=== PATIENT | female | born 1995 | race Caucasian/White ===

== ENCOUNTER → 2019-08-14 12:55 | Outpatient (CLI) | payer OTHER, SELFPAY | PROVIDERS: PCP Internal Medicine; Referring Provider Internal Medicine; Visit Provider Internal Medicine | DX: M79.641 Pain in right hand (principal) | CPT/HCPCS: 95886; 95910 ==

== ENCOUNTER → 2019-08-30 09:41 | Outpatient (CLI) | payer OTHER, SELFPAY ==
--- NOTE | 2019-08-30 | DI.MRI.S_ITS ---
PROCEDURE: MR HAND RT WO CON INDICATIONS: Pain in right finger(s) TECHNIQUE: Noncontrast coronal T1 spin echo and T2 fast spin echo with fat saturation, axial proton density fast spin echo and T2 fast spin echo with fat saturation, sagittal T1 spin echo and STIR through the hand and fingers. COMPARISON: [facility], RG, BILATERAL HANDS, 08/07/2019, 12:35. FINDINGS: Image quality: Diagnostic. Bones: There is no acute fracture, dislocation, or suspicious osseous lesion evident involving the osseous structures of the right hand. The alignment of the osseous structures of the hand are within normal limits. No definite osseous or erosions are appreciated. However, there are mild degenerative changes involving the joints of the thumb. Minimal degenerative cystic changes noted involving the head of the 1st metacarpal. No significant joint effusions are identified. Soft tissues: Visualized muscles demonstrate normal bulk and internal signal. No intramuscular masses identified. No ganglion cysts. They flexor and extensor tendons of the hand are within normal limits. No fluid is contained within the flexor or extensor tendon sheaths. The median nerve through the carpal tunnel is within normal limits. The ulnar nerve through T1 Canal appears to be within normal limits. Please note that the ligaments of the wrist are not adequately characterized on this examination related to the larger [id number]. No obvious large abnormalities are appreciated. The tracheal fibrocartilage complex appears to grossly be within normal limits, but also is not well characterized. IMPRESSION: 1. Mild degenerative changes of the thumb. 2. No acute fractures. No suspicious osseous lesions. 3. No significant soft tissue abnormalities are appreciated. The flexor and extensor tendons are within normal limits. Dictated by: Mateo Brooks M.D. on 09/01/2019 at 10:29 Approved by: Mateo Brooks M.D. on 09/01/2019 at 10:34
== END ==
PROVIDERS: PCP Internal Medicine; Referring Provider Orthopaedic Surgery; Visit Provider Orthopaedic Surgery
DX: M79.644 Pain in right finger(s) (principal)
CPT/HCPCS: 73218

== ENCOUNTER → 2020-01-23 12:44 | Outpatient (CLI) | payer OTHER, SELFPAY ==
--- NOTE | 2020-01-23 | DI.ECHO.S_ITS ---
[facility] +---------+ : : [address] : [place] : : : : [id number] : : : : Phone: [phone]+ Echocardiogram Report + + :Name: JALIL ZAFAR Study Date: 01/23/2020 Height: 73 in : :[facility] Weight: 155 lb : : Gender: Female BSA: 1.9 m2 : :: 1995 Age: 24 yrs BP: 126/80 mmHg: :Reason For Study: Serenity danlos syndrome : : Performed By: Cathleen Laura : :Referring: CHANDA SAUCEDO : + + Interpretation Summary Sinus bradycardia. Heart rate is 54-58 bpm. Normal LV size, wall thickness, wall motion and LV systolic function. EF is 60-65%. Normal chamber sizes. No significant valvular abnormalities. Normal aorta dimension. No cardiovascular manifestations of Serenity-Danlos syndrome identified. No prior study available for comparison. Procedure: A two-dimensional transthoracic echocardiogram with color flow and Doppler was performed. The study quality was technically adequate. There is no prior echocardiogram noted for this patient. The patient was in normal sinus rhythm during the exam. Left Ventricle: The left ventricle is normal in size and wall thickness. The ejection fraction is estimated to be 60-65%. Right Ventricle: The right ventricle is normal in size and function. Atria: The left atrial size is normal. Right atrial size is normal. There is no Doppler evidence for an interatrial shunt. Mitral Valve: The mitral valve is normal in structure and function. There is mild mitral regurgitation. Aortic Valve: The aortic valve is trileaflet. The aortic valve opens well. No aortic regurgitation is present. Tricuspid Valve: The tricuspid valve is normal in structure and function. There is a trace or physiologic amount of tricuspid regurgitation. Pulmonary artery pressures cannot be estimated because of the lack of a measurable TR jet velocity. Pulmonic Valve: The pulmonic valve leaflets are thin and pliable; valve motion is normal. There is a trace or physiologic amount of pulmonic regurgitation. Great Vessels: The aortic root is normal size. The ascending aorta is normal in size. The pulmonary artery is normal size. The IVC is of normal diameter and collapses greater than 50% with a sniff. This suggests a low right atrial pressure of 3 mm Hg. Pericardium/ Pleura There is no pericardial effusion. MMode/2D Measurements & Calculations LVIDd: 4.8 cm LVOT diam: 2.2 cm LVIDs: 3.4 cm Ao root diam: 2.9 cm FS: 28.7 % asc Aorta Diam: 2.7 cm IVSd: 0.48 cm Ao Arch Diam (Prox Trans): 2.4 cm LVPWd: 0.71 cm LV pinedo. diameter/BSA (cm/m^2): 2.5 LV sys. diameter/BSA (cm/m^2): 1.8 LA A2 area: 16.9 cm2 RA long axis: 5.0 cm LA A4 area: 16.5 cm2 RA area: 14.5 cm2 LA length (vol): 5.2 cm RA vol: 36.1 ml LA vol: 46.0 ml RA : 18.7 ml/m2 LA vol index: 23.8 ml/m2 IVC diam: 1.3 cm RVD1 (basal): 3.8 cm TAPSE: 2.6 cm Doppler Measurements & Calculations Ao V2 max: 102.4 cm/sec LVOT Max Donny: 79.2 cm/sec Ao V2 mean: 68.9 cm/sec LV V1 max P.5 mmHg Ao max P.2 mmHg LV V1 VTI: 17.0 cm Ao mean P.1 mmHg YESSENIA(I,D): 3.2 cm2 Ao V2 VTI: 20.3 cm YESSENIA(V,D): 2.9 cm2 sev ratio: 0.84 YESSENIA indexed to BSA (cm^2/m^2): 1.7 MV E max donny: 67.2 cm/sec PA V2 max: 78.3 cm/sec MV A max donny: 33.8 cm/sec PA V2 mean: 50.7 cm/sec MV E/A: 2.0 PA mean P.2 mmHg Med Peak E' Donny: 14.5 cm/sec PA Accel Time: 0.11 sec E/E' med: 4.6 Lat Peak E' Donny: 16.7 cm/sec E/E' lat: 4.0 E/e' average: 4.3 MV dec time: 0.14 sec SV(LVOT): 64.7 ml Electronically signed by: Cassandra Nettles M.D. on Reading Physician:01/23/2020 10:27 PM
--- NOTE | 2020-01-23 | DI.MRI.S_ITS ---
PROCEDURE: MR KNEE RT WO CON INDICATIONS: Serenity-Danlos syndrome, unspecified TECHNIQUE: Noncontrast sagittal PD fast spin echo and T2 fast spin echo with fat saturation, sagittal 3-D FLASH with fat saturation; coronal T1 spin echo and PD fast spin echo with fat saturation, and axial PD fast spin echo with fat saturation through the knee. COMPARISON: None. FINDINGS: Image quality: Excellent. Menisci: The medial and lateral menisci demonstrate normal morphology and internal signal. The meniscal root ligaments appear intact. Cruciate ligaments: The anterior and posterior cruciate ligaments appear intact. Medial structures: The medial collateral ligament appears intact. Visualized portions of the pes anserinus tendons appear normal. No abnormal bursal fluid. Lateral structures: The lateral collateral ligament, long and short heads of the biceps femoris tendon appear intact. The popliteus tendon appears normal. Iliotibial band appears normal. Anterior structures: The quadriceps and patellar tendons appear intact. Patellar alignment is normal. No femoral trochlear dysplasia or ventral trochlear prominence. No edema in the infrapatellar fat pad. Bones and cartilage: No bone marrow contusions or fractures. The cartilage of the medial and lateral femorotibial compartments, as well as the patellofemoral compartment, appears normal in thickness. Joint space: There is a small knee joint effusion and a trace Eduardo's cyst. Normal appearing synovial plicae are incidentally noted. IMPRESSION: 1. No evidence of internal derangement. 2. Small knee joint effusion. Trace Eduardo's cyst. Dictated by: Maximus Dunn M.D. on 01/23/2020 at 12:52 Approved by: Maximus Dunn M.D. on 01/23/2020 at 12:54
--- NOTE | 2020-01-23 | DI.MRI.S_ITS ---
PROCEDURE: MR KNEE LT WO CON INDICATIONS: Serenity-Danlos syndrome, unspecified TECHNIQUE: Noncontrast sagittal PD fast spin echo and T2 fast spin echo with fat saturation, sagittal 3-D FLASH with fat saturation; coronal T1 spin echo and PD fast spin echo with fat saturation, and axial PD fast spin echo with fat saturation through the knee. COMPARISON: [facility], MR, MR KNEE RT WO CON, 01/23/2020, 12:54. FINDINGS: Image quality: Excellent. Menisci: The medial meniscus is intact. There is amorphous high signal intensity within the free edge of the anterior horn lateral meniscus, demonstrating superior and inferior articular surface extension, indicating degenerative tearing. Cruciate ligaments: The anterior and posterior cruciate ligaments appear intact. Medial structures: The medial collateral ligament appears intact. Visualized portions of the pes anserinus tendons appear normal. No abnormal bursal fluid. Lateral structures: The lateral collateral ligament, long and short heads of the biceps femoris tendon appear intact. The popliteus tendon appears normal. Iliotibial band appears normal. Anterior structures: The quadriceps and patellar tendons appear intact. Patella is subluxed superolaterally.. No femoral trochlear dysplasia or ventral trochlear prominence. No edema in the infrapatellar fat pad. Bones and cartilage: No bone marrow contusions or fractures. There is indentation deformity of the medial patellar facet. There is mild articular cartilage loss diffusely overlying the weight-bearing aspects of the medial femoral condyle and medial tibial plateau. Severe articular cartilage loss overlies the medial aspect of the medial patellar facet. Joint space: There is physiologic knee joint fluid. No Eduardo's cyst. Normal appearing synovial plicae are incidentally noted. IMPRESSION: 1. Abnormal appearance of the patella which demonstrates superolateral subluxation. There is associated high-grade articular cartilage loss overlying the medial patellar facet. 2. Degenerative tearing of the free edge of the anterior horn lateral meniscus. Dictated by: Maximus Dunn M.D. on 01/23/2020 at 13:27 Approved by: Maximus Dunn M.D. on 01/23/2020 at 13:30
== END ==
PROVIDERS: PCP Internal Medicine; Referring Provider Orthopaedic Surgery; Visit Provider Orthopaedic Surgery
DX: Q79.60 Ehlers-Danlos syndrome, unspecified (principal); S83.282A Other tear of lateral meniscus, current injury, left knee, initial encounter
CPT/HCPCS: 73721; 93306

== ENCOUNTER → 2020-02-05 09:57 | Outpatient (CLI) | payer OTHER, SELFPAY ==
--- NOTE | 2020-02-05 09:59 | DI.RAD.S_ITS ---
PROCEDURE: XR KNEE LT 3V INDICATIONS: l knee pain TECHNIQUE: 3 views of the knee were acquired. COMPARISON: None. FINDINGS: Bones: No fractures or dislocations. No suspicious bony lesions. Soft tissues: No joint effusion. No suspicious soft tissue calcifications. Benign-appearing calcifications within the pretibial soft tissues. IMPRESSION: No acute fracture. No osseous lesion. If symptoms and/or clinical suspicion for pathology persist, further assessment with repeat, or advanced imaging (e.g., CT, MRI, or bone scan) may be helpful for further assessment. Dictated by: Maximus Dunn M.D. on 02/05/2020 at 10:09 Approved by: Maximus Dunn M.D. on 02/05/2020 at 10:10
== END ==
PROVIDERS: PCP Internal Medicine; Referring Provider Physician Assistant; Visit Provider Physician Assistant
DX: M25.562 Pain in left knee (principal)
CPT/HCPCS: 73562

== ENCOUNTER → 2020-02-24 13:27 | Outpatient (CLI) | payer OTHER, SELFPAY ==
--- NOTE | 2020-02-24 | DI.MRI.S_ITS ---
PROCEDURE: MR KNEE LT W CON INDICATIONS: KNEE PAIN - LEFT TECHNIQUE: After the administration of 50 mL of dilute intra-articular Gadolinium contrast, sagittal T1 spin echo with fat saturation and PD fast spin echo with fat saturation, coronal T1 spin echo with and without fat saturation, coronal T2 fast spin echo with fat saturation, axial PD fast spin echo with fat saturation through the knee. COMPARISON: [facility], MR, MR KNEE RT WO CON, 01/23/2020, 12:54. [facility], MR, MR KNEE LT WO CON, 01/23/2020, 13:21. [facility], CR, XR KNEE LT 3V, 02/05/2020, 10:00. FINDINGS: Image quality: Excellent. Menisci: The medial and lateral menisci demonstrate normal morphology and internal signal. The meniscal root ligaments appear intact. Cruciate ligaments: The anterior and posterior cruciate ligaments appear intact. Medial structures: The medial collateral ligament appears intact. The posterior oblique ligament, semimembranosus tendon insertions, oblique popliteal ligament, and meniscocapsular junction appear intact. Visualized portions of the pes anserinus tendons appear normal. No abnormal bursal fluid. Lateral structures: The lateral collateral ligament, long and short heads of the biceps femoris tendon appear intact. The popliteus tendon appears normal; the popliteofibular ligament appears intact. The posterosuperior and anteroinferior popliteomeniscal fascicles appear intact. The arcuate and fabellofibular ligaments appear intact around the lateral inferior geniculate artery. Iliotibial band appears normal. Anterior structures: The quadriceps and patellar tendons appear intact. Patellar alignment is normal. No femoral trochlear dysplasia or ventral trochlear prominence. No edema in the infrapatellar fat pad. Bone and cartilage: No bone marrow contusions or fractures. The cartilage of the medial and lateral femorotibial compartments appears normal in thickness. There is near full-thickness loss of medial patellar facet articular cartilage. Joint space: No Eduardo's cyst. Normal appearing synovial plicae are incidentally noted. No intra-articular bodies. IMPRESSION: 1. High-grade, near full-thickness medial patellar facet articular cartilage loss. 2. No meniscal tear. 3. No internal derangement. Dictated by: Flaca Gonzalez MD, PhD on 02/24/2020 at 14:34 Approved by: Flaca Gonzalez MD, PhD on 02/25/2020 at 19:03
--- NOTE | 2020-02-24 | DI.RAD.S_ITS ---
PROCEDURE: FL KNEE INJECTION MR/CT LT COMPARISON: None. INDICATIONS: KNEE PAIN TECHNIQUE: The indications, alternatives, benefits, risks and complications of the procedure were explained to the patient. Written informed consent was obtained and placed in the chart. The left knee was examined fluoroscopically and a site for needle placement chosen for intra into the knee joint from a medial approach. The skin was prepped and draped in a sterile fashion and 1% lidocaine infiltrated from the skin down to the joint capsule. A spinal needle was inserted into the knee joint and a small amount of iodinated contrast material was injected to confirm intra-articular placement of the needle tip. This was followed by approximately 40 milliliters of dilute saline solution of gadolinium containing MRI contrast agent. Needle was removed and a dressing was applied. The patient was given postprocedural instructions and sent to the MRI suite for MR imaging. No immediate complications. IMPRESSION: Successful fluoroscopic guided administration of dilute gadolinium solution into the left knee joint for MR arthrogram. Dictated by: Flaca Gonzalez MD, PhD on 02/26/2020 at 10:04 Approved by: Flaca Gonzalez MD, PhD on 02/26/2020 at 10:07
== END ==
PROVIDERS: PCP Internal Medicine; Referring Provider Orthopaedic Surgery; Visit Provider Orthopaedic Surgery
DX: M25.562 Pain in left knee (principal)
CPT/HCPCS: 27369; 27370; 73580; 73722; 77002

== ENCOUNTER → 2020-11-26 11:00 | Outpatient (CLI) | payer OTHER, SELFPAY ==
[2020-11-26 14:14] LABS: COVID-19 CEPHEID PCR (VTM/NP) Negative (Negative)
== END ==
PROVIDERS: PCP Internal Medicine; Visit Provider Nurse Practitioner
DX: Z20.822 Contact with and (suspected) exposure to COVID-19 (principal)
CPT/HCPCS: U0003

== ENCOUNTER → 2021-01-21 08:36 | Outpatient (CLI) | payer OTHER, SELFPAY ==
--- NOTE | 2021-01-21 | DI.MRI.S_ITS ---
PROCEDURE: MR KNEE RT W CON INDICATIONS: RIGHT KNEE PAIN TECHNIQUE: After the administration of 50 mL of dilute intra-articular Gadolinium contrast, sagittal T1 spin echo with fat saturation and PD fast spin echo with fat saturation, coronal T1 spin echo with and without fat saturation, coronal T2 fast spin echo with fat saturation, axial PD fast spin echo with fat saturation through the knee. COMPARISON: [facility], MR, MR KNEE LT WO CON, 01/23/2020, 13:21. [facility], MR, MR KNEE LT W CON, 02/24/2020, 13:42. FINDINGS: Menisci: Medial meniscus: Intact. Lateral meniscus: Intact. Cruciate ligaments: Anterior cruciate ligament: Intact. Posterior cruciate ligament: Intact. Medial structures: The medial collateral ligament: Intact. Semimembranosus tendon: Intact. Visualized pes anserinus tendons: Intact. Bursal fluid: none. Lateral structures: The lateral collateral ligament intact. Biceps femoris tendon appears intact. Popliteus tendon grossly unremarkable. Iliotibial band appears intact. Anterior structures: Quadriceps tendon intact. Medial and lateral patellofemoral ligaments intact. Post injection related changes involving the medial patellofemoral ligament. There are injection related air bubbles incidentally noted adjacent to the patella Patellar tendon appears intact. Borderline patella [place] Hoffa's fat pad unremarkable. Bones and cartilage: Marrow: No focal marrow contusion or discrete low signal fracture line. Medial compartment: No focal chondral defect. Lateral compartment: No focal chondral defect. Patellofemoral compartment: There is minimal partial-thickness loss of the cartilage overlying the medial patellar facet Joint space: Popliteal fossa: No Eduardo's cyst. Loose bodies: None. IMPRESSION: Borderline patella prem appearance. Minimal partial-thickness chondral loss overlying the medial patellar facet. No internal derangement seen. Dictated by: Romeo Royal M.D. on 01/21/2021 at 10:45 Approved by: Romeo Royal M.D. on 01/21/2021 at 10:57
--- NOTE | 2021-01-21 | DI.RAD.S_ITS ---
PROCEDURE: FL KNEE INJECTION MR/CT RT INDICATIONS: RIGHT KNEE PAIN COMPARISON: None. TECHNIQUE: The indications, alternatives, benefits, risks, and complications of the procedure were explained to the patient. Written informed consent was obtained and placed in the chart. The knee was examined fluoroscopically, and a site chosen for knee joint injection. The skin was prepped and draped in a sterile fashion, and 1% Lidocaine infiltrated from the skin down to the articular surface. A hypodermic needle was then introduced into the joint and iodinated contrast media was instilled to confirm the intra-articular needle tip placement. This was followed by approximately 50 mL dilute solution of a gadolinium containing MR contrast agent. The needle was removed and a bandage was applied. An Dylon wrap was then applied around the knee joint to keep the contrast from collecting in the suprapatellar recess. The patient experienced no complications throughout the procedure and left the fluoroscopic suite in no apparent distress. FINDINGS: Single fluoroscopic spot image demonstrates intra-articular location to injected iodinated contrast. IMPRESSION: Successful fluoroscopically guided administration of dilute Gadolinium solution into the knee joint for MR arthrogram. Dictated by: Romeo Royal M.D. on 01/24/2021 at 10:27 Approved by: Romeo Royal M.D. on 01/24/2021 at 10:27
== END ==
PROVIDERS: PCP Internal Medicine; Referring Provider Orthopaedic Surgery; Visit Provider Orthopaedic Surgery
DX: M25.561 Pain in right knee (principal)
CPT/HCPCS: 27369; 73722; 77002

== ENCOUNTER → 2021-03-23 07:11 | Outpatient (CLI) | payer OTHER, SELFPAY ==
--- NOTE | 2021-03-23 | DI.MRI.S_ITS ---
PROCEDURE: MR KNEE LT WO CON INDICATIONS: Pain in left knee TECHNIQUE: Noncontrast sagittal PD fast spin echo and T2 fast spin echo with fat saturation, sagittal 3-D FLASH with fat saturation; coronal T1 spin echo and PD fast spin echo with fat saturation, and axial PD fast spin echo with fat saturation through the knee. COMPARISON: [facility], CR, XR KNEE LT 3V, 02/05/2020, 10:00. [facility], RF, [place] KNEE INJECTION MR/CT RT, 01/21/2021, 10:05. [facility], MR, MR KNEE LT WO CON, 01/23/2020, 13:21. FINDINGS: Image quality: Excellent. Menisci: The medial and lateral menisci demonstrate no surfacing signal or extrusion. The meniscal root ligaments appear intact. Cruciate ligaments: The anterior and posterior cruciate ligaments appear intact. Medial structures: The medial collateral ligament appears intact. A fixation screw traverses the medial medial femoral condyle, which may reflect prior MCL or medial patellar retinaculum repair. The visualized portions of the pes anserinus tendons appear normal. No abnormal bursal fluid. Lateral structures: The lateral collateral complex appears intact. The popliteus tendon appears normal. The iliotibial band appears normal. Anterior structures: The quadriceps and patellar tendons appear intact. Medial subluxation of the patella. No edema in the infrapatellar fat pad. Bones and cartilage: No bone marrow contusions or fractures. Fixation screw traversing the medial aspect of the patella. Signal heterogeneity and thinning of the medial and lateral compartment hyaline cartilage without focal defect. Deficiency of the medial patellar facet hyaline cartilage, with most consistent with remote osteochondral injury. The trochlear hyaline cartilage is maintained. Joint space: Small knee joint fluid. No significance Eduardo's cyst. IMPRESSION: 1. Medial subluxation of the patella with postsurgical change of the medial patella and MCL/patellar retinaculum. Dictated by: Lucas Michelle M.D. on 03/23/2021 at 8:35 Approved by: Lucas Michelle M.D. on 03/23/2021 at 8:56
== END ==
PROVIDERS: PCP Internal Medicine; Referring Provider Orthopaedic Surgery; Visit Provider Orthopaedic Surgery
DX: M25.562 Pain in left knee (principal); G89.29 Other chronic pain; S83.092A Other subluxation of left patella, initial encounter
CPT/HCPCS: 73721